=== PATIENT | male | born 1990 | race Two or more races ===

== ENCOUNTER 2023-10-03 18:07 | Emergency (ER) | payer OTHER ==
[~2023-10-03] VITALS: Ht 172.7 cm; Wt 103.6 kg
[2023-10-03 18:10] VITALS: BP 148/88; PULSE 91; TEMP 98; O2SAT 98
[2023-10-03] MEDS ORDERED: IBUP-1984 PO (19:52)
[2023-10-03 19:58] VITALS: RESP 17
[2023-10-03] MEDS: ketorolac trometh. 30mg/ml inj. IM ONE (19:58)
== END 2023-10-03 20:25 | disposition home or self-care (01) ==
LOC: ER 18:08
DX: S67.42XA Crushing injury of left wrist and hand, initial encounter (principal); W31.2XXA Contact with powered woodworking and forming machines, initial encounter; Y93.89 Activity, other specified; Y92.89 Other specified places as the place of occurrence of the external cause; Y99.8 Other external cause status
CPT/HCPCS: 73090; 73110; 73130; 96372; 99284; J1885; A6449